=== PATIENT | male | born 1990 | race Two or more races ===

== ENCOUNTER 2023-10-18 14:03 | Emergency (ER) | payer OTHER ==
[~2023-10-18] VITALS: Ht 190.5 cm; Wt 73.0 kg
[2023-10-18 15:01] VITALS: BP 156/105; PULSE 117; RESP 18; TEMP 98.9; O2SAT 98
[2023-10-18] MEDS: cefTRIAXone SOD 500 MG VL IM ONE (15:35)
[2023-10-18] MEDS ORDERED: CLIN1CAP70 PO (15:39)
[2023-10-18] MEDS ORDERED: NABU-72 PO (15:39)
[2023-10-18] MEDS ORDERED: MET500T PO (15:39)
[2023-10-18] MEDS: LIDOCAINE 1% HCL (LOCAL ANESTH.) INJ 20ML MDV IJ ONE (15:44)
== END 2023-10-18 15:46 | disposition home or self-care (01) ==
LOC: ER 14:03
DX: L02.31 Cutaneous abscess of buttock (principal)
CPT/HCPCS: 10160; 87077; 87186; 87205; 96372; 99284; J0696; J2001